=== PATIENT | male | born 1955 | race African-American/Black ===

== ENCOUNTER 2017-06-06 12:41 | Inpatient (IN) | payer OTHER ==
[~2017-06-06] VITALS: Ht 167.6 cm; Wt 78.9 kg
--- NOTE | 2017-06-06 12:41 | NUR ---
Patient GENIIain DEDRA, triaged by RN. Waiting for an available bed.
[2017-06-06 12:45] VITALS: BP 131/74
--- NOTE | 2017-06-06 12:51 | NUR ---
Patient transferred to bed 7 for further care. RN evaluating patient at bedside.
--- NOTE | 2017-06-06 13:01 | NUR ---
EKG COMPLETED PT C/O PERSISTANT PRODUCTIVE COUGH WHITE PHLEGM WITH LEFT SIDED CHEST PRESSURE, WORSE WITH COUGH DENIES NAUSEA/EMESIS X 1 WK
[2017-06-06] MEDS ORDERED: NITROGLYCERIN 0.4 MG TAB SL ONE (13:05)
[2017-06-06] MEDS ORDERED: ASPIRIN 325 MG TAB PO ONE (13:05)
--- NOTE | 2017-06-06 13:09 | NUR ---
Dr. Casanova evaluating patient at bedside.
[2017-06-06] MEDS ORDERED: MORPHINE SULFATE 4 MG/ML SYR IVP ONE (13:10)
[2017-06-06 13:48] LABS: BASOPHILS # (AUTO) 0.4 K/uL (0.00-0.22); EOSINOPHILS # (AUTO) 0.2 K/uL (0-0.4); EOSINOPHILS % (AUTO) 2.8 % (0.0-4.0); HEMATOCRIT 50.1 % (36-52); LYMPHOCYTES # (AUTO) 1.7 K/uL (2.0-11.5); LYMPHOCYTES % (AUTO) 24.7 % (20.5-51.1); MEAN CORPUSCULAR HEMOGLOBIN 31 pg (27-31); MEAN CORPUSCULAR HGB CONC 32 g/dL (33-37); MEAN CORPUSCULAR VOLUME 98 fL (80-94); MONOCYTES # (AUTO) 0.3 K/uL (0.8-1.0); MONOCYTES % (AUTO) 4.5 % (1.7-9.3); NEUTROPHILS # (AUTO) 4.4 K/uL (1.8-7.7); NEUTROPHILS % (AUTO) 62.6 % (42.2-75.2); PLATELET COUNT (AUTO) 321 K/uL (140-450); RED BLOOD CELL COUNT(AUTO) 5.11 MIL/uL (4.20-6.10); RED CELL DISTRIBUTION WIDTH 14.7 % (11.6-13.7)
[2017-06-06 13:53] LABS: BASOPHILS % (AUTO) 5.4 % (0.0-2.0)
[2017-06-06 14:00] LABS: PROTHROMBIN TIME 10.9 secs (10.8-13.4)
[2017-06-06 14:04] LABS: CARBON DIOXIDE 28.4 mmol/L (21-32); CREATININE 1.4 mg/dL (0.7-1.3); POTASSIUM 4.4 mmol/L (3.5-5.1); TOTAL BILIRUBIN 0.3 mg/dL (0.0-1.0)
[2017-06-06] MEDS ORDERED: NACL 0.9% 1,000 ML IV ONE (14:25)
--- NOTE | 2017-06-06 15:09 | NUR ---
PT ADMITS PAIN HAS IMPROVED---HOLDING CONVERSATION ON HIS CELL PHONE
[2017-06-06] MEDS ORDERED: ACETAMINOPHEN 325 MG TAB PO PRN (15:10)
[2017-06-06] MEDS ORDERED: ONDANSETRON 4 MG/2 ML VIAL IVP PRN (15:10)
[2017-06-06] MEDS ORDERED: HYDROcodone/APAP 5/325 MG 1 TAB TAB PO PRN (15:10)
[2017-06-06] MEDS ORDERED: MORPHINE SULFATE 2 MG/ML SYR IVP PRN (15:10)
[2017-06-06] MEDS ORDERED: LORazepam 2 MG/ML VIAL IVP PRN (15:10)
--- NOTE | 2017-06-06 15:10 | NUR ---
Dr. Angelito Gordon agreed to serve as the Cardiology consult. He advised he will come evaluate the patient later today.
--- NOTE | 2017-06-06 15:17 | NUR ---
Pt transferred to Tele via [facility] TO ROOM 119-B REPORT GIVEN TO JADE PAGAN
[2017-06-06] MEDS ORDERED: SACU1TAB PO (15:26)
[2017-06-06] MEDS ORDERED: LISI-420 PO (15:26)
[2017-06-06] MEDS ORDERED: ATOR40TA PO (15:26)
[2017-06-06] MEDS ORDERED: GLIM2TAB2 PO (15:26)
[2017-06-06] MEDS ORDERED: CARV6.25 PO (15:26)
[2017-06-06 15:50] VITALS: BP 115/86
--- NOTE | 2017-06-06 15:50 | NUR ---
RECEIVED PT REPORT AT BEDSIDE FROM ER NURSE. PT IS AAOX4 AND STATES NON RADIATING CHEST PAIN OF 5/10. WILL ADMINISTER SCHEDULED NITROGLYCERIN MEDICATION. PT SHOWS NO S/S OF ACUTE DISTRESS ON ROOM AIR. CLEAN AND INTACT IV WAS NOTED ON THE LEFT FOREARM SL. DISCUSSED POC WITH PT AND HE VERBALIZED UNDERSTANDING. THE BED IS IN LOW POSITION WITH CALL LIGHT WITHIN REACH. WILL CONTINUE TO MONITOR.
[2017-06-06] MEDS ORDERED: NITROGLYCERIN 2% 1 GM PKT TP SCH (16:00)
--- NOTE | 2017-06-06 17:54 | NUR ---
PT IS EATING DINNER AND TOLERATING DIET WELL. BED IN LOW POSITION WITH CALL LIGHT WITHIN REACH.
--- NOTE | 2017-06-06 18:00 | NUR ---
PT STATES 4/10 NON RADIATING CHEST PAIN THAT IS TOLERABLE. THE BED IS IN LOW POSITION WITH CALL LIGHT WITHIN REACH.
--- NOTE | 2017-06-06 19:10 | NUR ---
GAVE REPORT AT BEDSIDE TO NIGHT NURSE, PT ENDORSED IN STABLE CONDITION.
--- NOTE | 2017-06-06 19:20 | NUR ---
RECEIVED PT IN STABLE CONDITION FROM AM NURSE. AWAKE, ALERT ,ORIENTED X4. ON TELE MONITOR. DENIES ANY CHEST PAIN AT THIS TIME. WITH IV ACCESS ON THE LT FA#20. CLEAR AND PATENT. PLAN OF CARE DISCUSSED AND VERBALIZED UNDERSTANDING. BED ON LOW POSITION. CALL LIGHT AND UIRNAL PLACED WITHIN EASY REACH. WILL CONTINUE TO MONITOR.
[2017-06-06 20:00] VITALS: BP 131/80
--- NOTE | 2017-06-06 21:00 | NUR ---
MADE ROUNDS. NO S/S OF ANY DISCOMFORT NOR PAIN NOTED. WILL CONTINUE TO MONITOR.
--- NOTE | 2017-06-06 23:00 | NUR ---
CHECKED ON PT. SLEEPING. NO S/S OF ANY DISCOMFORT NOTED.
[2017-06-07] VITALS: BP 124/80
--- NOTE | 2017-06-07 00:30 | NUR ---
PT UP TO THE BATHROOM. INFORMED PT ABOUT THE NPO STATUS AFTER MN. VERBALIZED UNDERSTANDING.
--- NOTE | 2017-06-07 02:10 | NUR ---
CHECKED ON PT, PT SLEEPING, EASY TO AROUSE, REPORTED HAVING NO PAIN, NO DISTRESS NOTED, CALL LIGHT WITHIN REACH, WILL CONTINUE TO MONITOR.
--- NOTE | 2017-06-07 03:51 | NUR ---
PT HAD AN EPISODE OF SHORT RUN SVT ON THE MONITOR. CHECKED ON PT. SLEEPING. BUT EASILY AROUSE. ASYMPTOMATIC, NO C/O ANY DISCOMFORT NOR PAIN NOTED. VITAL SIGNS STABLE. WILL CONTINUE TO MONITOR.
[2017-06-07 03:53] VITALS: BP 127/79
--- NOTE | 2017-06-07 05:37 | NUR ---
PT AWAKE, MEDICATED EARLIER FOR PAIN. HE SAID PAIN IS BETTER.
--- NOTE | 2017-06-07 05:47 | NUR ---
BLOOD WAS JACK . WILL FOLLOW UP RESULTS.
[2017-06-07 06:52] LABS: HEMOGLOBIN 14.5 g/dL (12.0-18.0); MEAN CORPUSCULAR HEMOGLOBIN 31 pg (27-31); MEAN CORPUSCULAR HGB CONC 32 g/dL (33-37); MEAN CORPUSCULAR VOLUME 97 fL (80-94); PLATELET COUNT (AUTO) 302 K/uL (140-450); RED BLOOD CELL COUNT(AUTO) 4.62 MIL/uL (4.20-6.10); RED CELL DISTRIBUTION WIDTH 14.8 % (11.6-13.7); WHITE BLOOD COUNT (AUTO) 6.8 K/uL (4.8-10.8)
[2017-06-07 07:10] LABS: CHOL/HDL RATIO 2.9 (1-4.5)
[2017-06-07 07:15] LABS: ALBUMIN 2.7 g/dL (3.4-5.0); CARBON DIOXIDE 21.4 mmol/L (21-32); MAGNESIUM 1.9 mg/dL (1.8-2.4); POTASSIUM 4.4 mmol/L (3.5-5.1); TOTAL BILIRUBIN 0.5 mg/dL (0.0-1.0)
--- NOTE | 2017-06-07 07:16 | NUR ---
BLOOD SUGAR WAS CHECKED THIS AM FOR NURSING, PT NPO , RESULT 99. ENDORSED PT IN STABLE CONDITION TO AM NURSE.
--- NOTE | 2017-06-07 07:20 | NUR ---
RECEIVED PT REPORT AT BEDSIDE FROM TALENT DEVELOPMENT DIRECTOR. PT IS AAOX4, DENIED CHEST PAIN AT THIS TIME. PT SHOWED NO S/S OF ACUTE DISTRESS ON ROOM AIR. IV NOTED ON THE LEFT ARM, SALINE LOCK. FLUSHED WITH SALINE, PATENT AND NO S/S INFILTRATION OR SWELLING. PT STILL HAVE INTERMITTENT COUGH, RHONCHI HEARD FROM BILATERAL LUNGS. THE BED IS IN LOW POSITION, CALL LIGHT WITHIN REACH. WILL CONTINUE TO MONITOR.
[2017-06-07 07:39] VITALS: BP 131/86
[2017-06-07] MEDS: ASPIRIN 325 MG TAB PO SCH (08:01)
[2017-06-07] MEDS ORDERED: INSULIN LISPRO SLIDING SCALE 100 UNITS/ML VIAL SUBQ PRN (08:10)
[2017-06-07] MEDS ORDERED: LOVENOX 1MG/KG Q12H SUBQ SCH (08:10)
[2017-06-07] MEDS ORDERED: DEXTROSE 50% 50 ML SYR IVP PRN (08:10)
[2017-06-07 08:12] LABS: BASOPHILS % (MANUAL) 0 % (0-2); EOSINOPHILS % (MANUAL) 2 % (0-4); LYMPHOCYTES % (MANUAL) 37 % (20-46); MONOCYTES % (MANUAL) 7 % (5-12)
[2017-06-07] MEDS ORDERED: CARVEDILOL 6.25 MG TAB PO SCH (09:00)
[2017-06-07] MEDS ORDERED: CLINICAL MONITORING MC SCH (09:00)
[2017-06-07] MEDS ORDERED: ENOXAPARIN 60 MG/0.6 ML SYR SUBQ SCH (09:00)
[2017-06-07] MEDS ORDERED: LISINOPRIL 20 MG TAB PO SCH (09:00)
[2017-06-07] MEDS ORDERED: ENOXAPARIN 40 MG/0.4 ML SYR SUBQ SCH (09:00)
[2017-06-07] MEDS: ATORVASTATIN 20 MG TAB PO SCH (09:20)
--- NOTE | 2017-06-07 09:45 | NUR ---
SPOKE WITH DR STOUT AND INFORMED HIM ABOUT THE PATIENT. ORDERS STRESS TEST TO BE DONE AT 1300 TODAY
--- NOTE | 2017-06-07 11:50 | NUR ---
INFORMED DR Leidy MEDINA THAT PER PT HE CAN'T WALK ON A TREADMILL. DR ORDERED TO RESUME DIET. DR TO SEE THE PT LATER TODAY.
[2017-06-07] MEDS: BLOOD GLUCOSE MONITORING 1 DEV DEV FS SCH ×3 (11:54→20:25)
[2017-06-07 11:56] VITALS: BP 134/88
--- NOTE | 2017-06-07 12:38 | NUR ---
PT FINISHED LUNCH, RESTING IN BED COMFORTABLY, NO S/S OF ACUTE DISTRESS NOTED. WILL CONTINUE TO MONITOR.
--- NOTE | 2017-06-07 14:00 | NUR ---
URINE COLLECTED AND SENT TO THE LAB.
[2017-06-07 15:59] LABS: CREATINE KINASE MB 2.3 ng/mL (0-3.6)
[2017-06-07 16:00] VITALS: BP 134/82
[2017-06-07 16:03] LABS: BARBITURATE, URINE NEG. ng/ml (NEG <=200); BENZODIAZEPINE, URINE NEG. ng/mL (NEG <=200); CANNABINOID, URINE NEG. ng/mL (NEG <=50); COCAINE, URINE NEG. ng/mL (NEG <=300); OPIATE, URINE NEG. ng/mL (NEG <=2000); PHENCYCLIDINE SCREEN,URINE NEG. ng/mL (NEG <=25)
[2017-06-07] MEDS: CARVEDILOL 6.25 MG TAB PO SCH (16:05)
--- NOTE | 2017-06-07 19:37 | NUR ---
ENDORSE PT TO PETROLOGY TEACHER. REPORT GIVEN AT PT BEDSIDE. PT IS IN STABLE CONDITION, NO S/S OF ACUTE DISTRESS NOTED.
--- NOTE | 2017-06-07 19:40 | NUR ---
RECEIVED PT IN STABLE CONDITION FROM AM NURSE. AWAKE,ALERT AND ORIENTED X4. ON TELE MONITOR. WITH NO ACUTE DISTRESS NOTED. DENIES ANY DISCOMFORT NOR PAIN. WITH HL ON THE LT FA #20. CLEAR AND PATENT. PLAN OF CARE DISCUSSED AND VERBALIZED UNDERSTANDING. CALL LIGHT PLACED WITHIN EASY REACH. WILL CONTINUE TO [facility].
[2017-06-07 19:45] VITALS: BP 129/92
[2017-06-07] MEDS: ENOXAPARIN 80 MG/0.8 ML SYR SUBQ SCH (20:24)
--- NOTE | 2017-06-07 20:25 | NUR ---
BLOOD SUGAR WAS CHECKED RESULT 104. NO INSULIN COVERAGE. PROVIDED SOME SNACK. TOLERATED WELL. WILL CONTINUE TO MONITOR.
--- NOTE | 2017-06-07 22:00 | NUR ---
SLEEPING AT THIS,TIME. NO S/S OF ANY DISCOMFORT NOTED. WILL CONTINUE TO MONITOR.
[2017-06-08] VITALS (7 sets, daily range): BP systolic 129–158; BP diastolic 71–99
--- NOTE | 2017-06-08 02:00 | NUR ---
MADE ROUNDS. PT ASLEEP. NO S/S OF ANY DISTRESS NOTED.
[2017-06-08] MEDS: BLOOD GLUCOSE MONITORING 1 DEV DEV FS SCH ×4 (06:39→20:29)
--- NOTE | 2017-06-08 06:39 | NUR ---
BLOOD SUGAR THIS AM 120. NO INSULIN NEEDED.
--- NOTE | 2017-06-08 07:20 | NUR ---
ENDORSED PT IN STABLE CONDITION TO AM NURSE.
--- NOTE | 2017-06-08 07:21 | NUR ---
RECEIVED REPORT FROM THE INSOLE BUFFER NURSE AT BEDSIDE FOR CONTINUITY OF CARE. PT IS AWAKE AND ORIENTED. INTRODUCED MYSELF AND UPDATED THE BOARD. PT V/S: 98.2F, 158/99, 74, 18, 95%. DENIES PAIN. PT'S SKIN IS INTACT. IV ON L FA 20G SL. PLAN FOR TODAY: ECHO. PER [facility] SHIFT NURSE, PT HAD REFUSED THE TREADMILL STRESS TEST YESTERDAY. AWAITING MEDICAL RECORDS FROM [facility]. WILL CONTINUE TO MONITOR PT.
[2017-06-08] MEDS ORDERED: ONDA2SOL45 IVP (09:28)
[2017-06-08] MEDS ORDERED: LOV80I SUBQ (09:28)
[2017-06-08] MEDS ORDERED: HUMSLIDE SUBQ (09:28)
[2017-06-08] MEDS ORDERED: ACET-1182 PO (09:28)
[2017-06-08] MEDS ORDERED: MORP2SOL18 IVP (09:28)
[2017-06-08] MEDS: ATORVASTATIN 20 MG TAB PO SCH (09:31)
[2017-06-08] MEDS: CARVEDILOL 6.25 MG TAB PO SCH ×2 (09:31→16:50)
[2017-06-08] MEDS: ASPIRIN 325 MG TAB PO SCH (09:31)
[2017-06-08] MEDS: ENOXAPARIN 80 MG/0.8 ML SYR SUBQ SCH ×2 (09:35→20:31)
--- NOTE | 2017-06-08 09:40 | NUR ---
ADMINISTERED MORNING MEDS. PT TOLERATED WELL. WILL CONTINUE TO MONITOR PT.
--- NOTE | 2017-06-08 10:32 | NUR ---
PATIENT HAS BEEN SCREENED AND CATEGORIZED MODERATE NUTRITION RISK. PATIENT WILL BE SEEN WITHIN 3-5 DAYS OF ADMISSION. 06/08/17-06/11/[address]
--- NOTE | 2017-06-08 10:40 | NUR ---
CALLED [facility] MR OFFICE. LEFT MESSAGE REQUESTING THE CATH REPORT STAT.
--- NOTE | 2017-06-08 11:10 | NUR ---
ECHO BEING DONE.
--- NOTE | 2017-06-08 13:48 | NUR ---
CM NOTE INITIAL REVIEW FAXED TO [facility] [phone] LOI PH# [phone] HOWARD TO CLARIFY ORDER FOR TRANSFER TO [facility] AND SHE SAID TO TALK TO DR. Leidy MEDINA. SPOKE WITH DR. Leidy MEDINA WHO SAID THAT HE ONLY NEEDS PATIENT TO BE AT [facility] ON 06/09/17 FOR CARDIAC CATH. SPOKE WITH CHERI OF [facility] CARDIAC CATH AND SHE SAID PATIENT IS SCHEDULED FOR CARDIAC CATH ON 06/09/17, 3:30PM. SHE ALSO SAID THAT PATIENT NEEDS TO BE THERE AT 12 NOON TOMORROW. SPOKE WITH [facility] LOI PH# [phone]. PER SHAYNA MONSIVAIS [facility] TRANSPORT AUTH# [id number] AND CARDIAC CATH [facility] AUTH# [id number]. SPOKE WITH HARDIK OF [facility] PH# TO SET UP PATIENT'S ACLS TRANSPORT. PATIENT WILL BE PICKED UP AT [facility] ON 06/09/17, 10:30AM, GOING TO [facility] RETAIL MANAGEMENT KEYHOLDER, TO STOP BY THE ER TO CHECK IN. CHARGE NURSE CLARI GRIJALVA.
--- NOTE | 2017-06-08 14:00 | NUR ---
PT HAS A VISITOR. NOTIFIED PT THAT PT WILL BE TRANSFERRED TOMORROW AT 1000 [place] [facility] [place] AT 1500 W/ DR MEDINA. PT VERBALIZED UNDERSTANDING.
--- NOTE | 2017-06-08 15:31 | NUR ---
REQUESTED A PEANUT BUTTER AND JELLY SANDWICH. CALLED [facility]. GAVE SANDWICH TO PT.
--- NOTE | 2017-06-08 16:20 | NUR ---
CALLED [facility] AGAIN AND MADE A COMPLAINT RE MEDICAL RECORDS. THEY STATED THEY NEVER RECEIVED THE FAX. REFAXED REQUEST, MARKED STAT AND THEY WILL ADDRESS THE REQUEST TODAY.
--- NOTE | 2017-06-08 19:15 | NUR ---
ENDORSED PT TO THE NIGHTSHIFT NURSE AT BEDSIDE FOR CONTINUITY OF CARE. PT IS IN STABLE CONDITION.
--- NOTE | 2017-06-08 19:25 | NUR ---
RECEIVED FROM AM RN IN BED SLEEPING. WOKE UP EASILY WHEN TOUCHED . NO SOB. DENIES ANY CHEST PAIN AT THIS TIME. TELEMETRY MONITORING. CALL LIGHT WITH IN REACH AND IVF SITE TO LFA#20 INTACT AND NO INFILTRATION. FOR TRANSFER TO [facility] TOMORROW IN A.M. ENCOURAGED TO CALL FOR ANY HELP HE MAY NEED OR IF IN PAIN.
--- NOTE | 2017-06-08 22:00 | NUR ---
PT. SLEEPING AT THIS TIME. TELEMETRY MONITORING.
--- NOTE | 2017-06-08 23:47 | NUR ---
PT. WOKE UP TO USE RESTROOM. NO COMPLAINTS OF CHEST PAIN . ENCOURAGED TO USE CALL LIGHT FOR ANY HELP HE MAY NEED. A/O X 4. ROM X 4. CLEAR SPEECH.
--- NOTE | 2017-06-09 02:41 | NUR ---
AWAKE AT THIS TIME AND WATCHING TV. ENCOURAGED TO GO BACK TO SLEEP . "OK" DENIES ANY PAIN AT THIS TIME.
[2017-06-09 04:20] VITALS: BP 136/78
--- NOTE | 2017-06-09 04:40 | NUR ---
SLEEPING. WOKE UP EASILY WHEN VITALS TAKEN. NO PAIN COMPLAINTS.
[2017-06-09] MEDS: BLOOD GLUCOSE MONITORING 1 DEV DEV FS SCH ×2 (05:45→11:34)
--- NOTE | 2017-06-09 06:49 | NUR ---
STILL SLEEPING AT THIS TIME. TELEMETRY MONITORING. NO RESTLESSNESS. IVF SITE TO LEFT FOREARM #[address] AND INTACT[address]
--- NOTE | 2017-06-09 07:10 | NUR ---
ASSUMED CONTINUITY OF CARE. NO SIGNS AND SYMPTOMS OF ACUTE DISTRESS NOTED. INITIAL ASSESSMENT DONE. KEEP COMFORTABLE ON BED. EXPLAINED DIAGNOSIS, PLAN OF CARE, PAIN MANAGEMENT TEACHING, USE OF CALL LIGHT/BED/TV/BATHROOM. VERBALIZED UNDERSTANDING. CALL LIGHT WITHIN REACH.
[2017-06-09 07:25] LABS: HEMATOCRIT 46.4 % (36-52); HEMOGLOBIN 15.3 g/dL (12.0-18.0); MEAN CORPUSCULAR HEMOGLOBIN 32 pg (27-31); MEAN CORPUSCULAR HGB CONC 33 g/dL (33-37); MEAN CORPUSCULAR VOLUME 96 fL (80-94); PLATELET COUNT (AUTO) 285 K/uL (140-450); RED BLOOD CELL COUNT(AUTO) 4.85 MIL/uL (4.20-6.10); RED CELL DISTRIBUTION WIDTH 14.6 % (11.6-13.7); WHITE BLOOD COUNT (AUTO) 6.6 K/uL (4.8-10.8)
--- NOTE | 2017-06-09 07:25 | NUR ---
Patient's Plan of Care was discussed and reviewed with SINA: GUALBERTO
[2017-06-09 07:36] LABS: ANION GAP 13.5 (8-16); CARBON DIOXIDE 23.7 mmol/L (21-32); CREATININE 1.1 mg/dL (0.7-1.3); POTASSIUM 4.2 mmol/L (3.5-5.1)
[2017-06-09 07:37] LABS: PROTHROMBIN TIME 10.4 secs (10.8-13.4)
[2017-06-09 07:57] LABS: LYMPHOCYTES % (MANUAL) 35 % (20-46)
[2017-06-09 07:58] LABS: EOSINOPHILS % (MANUAL) 3 % (0-4); MONOCYTES % (MANUAL) 7 % (5-12)
[2017-06-09 08:00] VITALS: BP 128/70
[2017-06-09] MEDS: CARVEDILOL 6.25 MG TAB PO SCH (08:17)
[2017-06-09] MEDS: ATORVASTATIN 20 MG TAB PO SCH (08:17)
[2017-06-09] MEDS: ASPIRIN 325 MG TAB PO SCH ×2 (08:18→09:47)
[2017-06-09] MEDS: ENOXAPARIN 80 MG/0.8 ML SYR SUBQ SCH (08:18)
--- NOTE | 2017-06-09 09:10 | NUR ---
EXPLAINED ABOUT MD D/C ORDER, D/C INSTRUCTIONS AND TEACHING, DISEASE MANAGEMENT TEACHING, PAIN MANAGEMENT TEACHING, DM TEACHING, DIET. VERBALIZED UNDERSTANDING.
--- NOTE | 2017-06-09 09:15 | NUR ---
DR. HOWARD CAME, SEEN PT., CHECKED PT. CHART, AND CALLED [facility] FOR ADDITIONAL PT. MEDICAL RECORDS.
--- NOTE | 2017-06-09 09:32 | NUR ---
CM NOTE CONCURRENT REVIEW FAXED TO [facility] [phone] CM LOI # [phone]
--- NOTE | 2017-06-09 09:36 | NUR ---
CALLED [facility] (CARDIAC CATH) AND GAVE REPORT TO NIKI AC REGARDING PT. TRANSFER. INFORMED CHARGE NURSE SAGAR GOTTI.
--- NOTE | 2017-06-09 09:41 | NUR ---
CALLED PT. SISTER -TJ BLOCK AND INFORMED OF PT. TRANSFER TO [facility]. PT. -TJ BLOCK VERBALIZED UNDERSTANDING VIA PHONE.
--- NOTE | 2017-06-09 10:24 | NUR ---
CALLED [facility] AND SPOKE TO ZACHARY REGARDING PT. TRANSFER TO [facility]. PER ZACHARY FROM [facility], PT. TRANSPORT WILL BE LATE FOR 30 TO 60 MINUTES BECAUSE TRANSPORT NOT AVAILABLE AT THIS TIME. INFORMED CHARGE NURSE SAGAR AC.
--- NOTE | 2017-06-09 11:30 | NUR ---
ZACHARY FROM [facility] CALLED AND SAID THAT [facility] WILL TRANSPORT PT. TO [facility]. INFORMED CHARGE NURSE SAGAR AC.
[2017-06-09 11:45] VITALS: BP 128/74
--- NOTE | 2017-06-09 11:50 | NUR ---
TRANSFER PT. TO [facility] VIA [facility] WITH [facility] MEDICAL TRANSPORTER. AWAKE, ALERT, AND ORIENTED X4. SPEECH CLEAR. NO C/O PAIN. NO SOB, NOTED. IN STABLE CONDITION. INFORMED CHARGE NURSE SAGAR AC.
== END 2017-06-09 11:50 | disposition short-term general hospital (02) | DRG 190 ==
LOC: MED 12:41 → MTU 15:11
PROVIDERS: ADMIT Hospitalist; ATTEND Hospitalist
DX: I21.4 Non-ST elevation (NSTEMI) myocardial infarction (principal); N17.9 Acute kidney failure, unspecified; E11.9 Type 2 diabetes mellitus without complications; I25.10 Atherosclerotic heart disease of native coronary artery without angina pectoris; I25.2 Old myocardial infarction; E44.1 Mild protein-calorie malnutrition; I10 Essential (primary) hypertension; F10.21 Alcohol dependence, in remission; F17.210 Nicotine dependence, cigarettes, uncomplicated; Z86.73 Personal history of transient ischemic attack (TIA), and cerebral infarction without residual deficits; Z68.28 Body mass index [BMI] 28.0-28.9, adult; Z79.82 Long term (current) use of aspirin; Z79.899 Other long term (current) drug therapy; Z95.5 Presence of coronary angioplasty implant and graft
CPT/HCPCS: 36415; 71010; 80048; 80053; 80305; 82550; 82553; 82948; 83036; 83735; 83880; 84484; 85025; 85610; 85730; 87081; 93005; 99285; J0696; J1650; J1815; J2270; J7030; J7060; Q0092